=== PATIENT | female | born 1995 | race Caucasian/White ===

== ENCOUNTER 2023-04-06 15:49 | Emergency (ER) | payer OTHER ==
--- NOTE | 2023-04-06 16:23 | ED Physician Documentation ---
PD HPI NVD - Stated complaint Stated Complaint: VOMITING/SWEATING - Chief complaint Chief Complaint: Abd Pain - History obtained from History obtained from: Patient, Family () - History of Present Illness Timing - onset: Today (4am) Timing - duration: Hours Timing - details: Abrupt onset, Still present Associated symptoms: Abdominal pain, Other (diarrhea has now started nausea and vomiting every hour for the past 12 hours.) Contributing factors: Bad food (had a pot luck at work at the same as at home and he is not sick.) Improved by: Vomiting Similar symptoms before: No diagnosis Recently seen: Not recently seen - Additonal information Additional information: 28-year-old Naomy Lilly reports that she was feeling well when she went to bed last night and about 4 AM she woke up with a sweat and developed nausea and vomiting. Since she has been to the emergency department she has developed diarrhea as well. She states that it looks like the same thing that is she is vomiting. She went to a pot luck at work yesterday and does not remember specifically what she had to eat but she did have dinner with her and he is not sick. She remembers feeling somewhat under the weather last night when she went to bed but she did not necessarily feel ill. When she awoke at 4 AM with the sweats she felt ill. She has vomited once an hour for the past 12 hours.She does admit to cannabis use but not for the past 2 weeks. She did not get any relief by getting into a warm bath. She has had some issues with her stomach and nausea and pain previously. Review of Systems Constitutional: reports: Chills, Sweats. denies: Fever Ears: denies: Ear pain Nose: denies: Congestion Throat: denies: Sore throat Cardiac: denies: Chest pain / pressure, Palpitations Respiratory: denies: Dyspnea, Cough GI: reports: Abdominal Pain, Nausea, Vomiting, Diarrhea : denies: Dysuria, Frequency, Hesitancy PD PAST MEDICAL HISTORY - Present Medications Home Medications: Ambulatory Orders Medication Instructions Recorded Confirmed Ondansetron Odt [Zofran] 4 mg TL Q6H PRN #10 tablet 04/06/23 - Allergies Allergies/Adverse Reactions: Allergies Allergy/AdvReac Type Severity Reaction Status Date / Time No Known Drug Allergies Allergy Verified 04/06/23 15:58 PD ED PE NORMAL - Vitals Vital signs reviewed: Yes (Hypertensive mild) - General General: Alert and oriented X 3, No acute distress, Well developed/nourished - HEENT HEENT: Atraumatic, PERRL, EOMI - Neck Neck: Supple, no meningeal sign, No bony TTP - Cardiac Cardiac: RRR, No murmur - Respiratory Respiratory: No respiratory distress, Clear bilaterally - Abdomen Abdomen: Normal bowel sounds, Soft, Non distended, No organomegaly, Other (Mild generalized tenderness without guarding) - Back Back: No CVA TTP, No spinal TTP - Derm Derm: Normal color, Warm and dry, No rash - Extremities Extremities: No deformity, No edema - Neuro Neuro: Alert and oriented X 3, 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, No motor deficit, No sensory deficit, Normal speech Eye Opening: Spontaneous Motor: Obeys Commands Verbal: Oriented GCS Score: 15 - Psych Psych: Normal mood, Normal affect Results - Vitals Vitals: Vital Signs - 24 hr 04/06/23 04/06/23 04/06/23 15:54 15:58 17:58 Temperature 36.6 C 36.6 C 36.5 C Heart Rate 90 90 86 Respiratory 16 16 16 Rate Blood Pressure 131/90 H 131/90 H 128/88 H O2 Saturation 97 97 98 Oxygen O2 Source Room air - Labs Labs: Laboratory Tests 04/06/23 04/06/23 04/06/23 16:30 16:30 16:30 WBC 8.8 RBC 4.29 Hgb 14.2 Hct 39.8 MCV 92.8 MCH 33.1 H MCHC 35.7 RDW 12.4 Plt Count 358 MPV 8.7 Neut # (Auto) 6.9 H Lymph # (Auto) 1.4 L [place] # (Auto) 0.5 Eos # (Auto) 0.0 Baso # (Auto) 0.1 Absolute Nucleated RBC 0.00 Nucleated RBC % 0.0 Sodium 141 Potassium 3.7 Chloride 106 Carbon Dioxide 24 Anion Gap 11.0 BUN 17 Creatinine 0.7 Estimated GFR (MDRD) 101 Glucose 117 H Calcium 8.9 Total Bilirubin 0.9 AST 29 ALT 25 Alkaline Phosphatase 49 Total Protein 8.3 H Albumin 4.6 Globulin 3.7 Albumin/Globulin Ratio 1.2 Lipase 34 Urine Color YELLOW Urine Clarity CLEAR Urine pH 7.0 Ur Specific [place] 1.020 Urine Protein NEGATIVE Urine Glucose (UA) NEGATIVE Urine Ketones NEGATIVE Urine Occult Blood TRACE-INTA Urine Nitrite NEGATIVE Urine Bilirubin NEGATIVE Urine Urobilinogen 0.2 (NORMAL) Ur Leukocyte Esterase NEGATIVE Ur Microscopic Review NOT INDICATED Urine Culture Comments NOT INDICATED Urine HCG, Qual NEGATIVE PD Medical Decision Making - ED course Complexity details: reviewed results, re-evaluated patient, considered diffe rential, d/w patient ED course: 28-year-old female with acute nausea vomiting and diarrhea of 12 hours duration presents to the emergency department appearing dehydrated and still nauseated. We have administered Zofran and saline. She has improvement. Departure - Departure Disposition: Home, Self Care Clinical Impression: Gastroenteritis Condition: Stable Instructions: ED Gastroenteritis Vs Food Poison Follow-Up: Your, doctor [Other] Prescriptions: Ondansetron Odt [Zofran] 4 mg TL Q6H PRN #10 tablet PRN Reason: Nausea / Vomiting Comments: Naomy, today looks like you have acute food poisoning and the expectation with this is a rapid recovery to this. I have E scribed some Zofran for you to use to the [facility] in [place]. If you are unable to keep fluids down by tomorrow a return visit is indicated. Discharge Date/Time: 04/06/23 18:01
[2023-04-06] MEDS ORDERED: SODIUM CHLORIDE 0.9% 1,000 ML IV STA (16:25)
[2023-04-06] MEDS ORDERED: ONDANSETRON 4 MG/2 ML VIAL IVP STA (16:25)
[2023-04-06 16:41] LABS: BASOPHILS # (AUTO) 0.1 10^3/uL (0.0-0.1); BASOPHILS % (AUTO) 0.8 %; HCT - HEMATOCRIT 39.8 % (37.0-47.0); HGB - HEMOGLOBIN 14.2 g/dL (12.0-16.0); LYMPHOCYTES # (AUTO) 1.4 10^3/uL (1.5-3.5); LYMPHOCYTES % (AUTO) 15.8 %; MEAN CORPUSCULAR HEMOGLOBIN 33.1 pg (27.0-31.0); MEAN CORPUSCULAR HGB CONC 35.7 g/dL (32.0-36.0); MEAN CORPUSCULAR VOLUME 92.8 fL (81.0-99.0); MEAN PLATELET VOLUME 8.7 fL (7.9-10.8); MONOCYTES # (AUTO) 0.5 10^3/uL (0.0-1.0); MONOCYTES % (AUTO) 5.3 %; NEUTROPHILS # (AUTO) 6.9 10^3/uL (1.5-6.6); NEUTROPHILS % (AUTO) 77.6 %; PLT - PLATELET COUNT 358 10^3/uL (130-450); RED BLOOD COUNT 4.29 10^6/uL (4.20-5.40); RED CELL DISTRIBUTION WIDTH 12.4 % (12.0-15.0); WHITE BLOOD COUNT 8.8 x10^3/uL (4.8-10.8)
[2023-04-06 16:43] LABS: BILIRUBIN,URINE NEGATIVE (NEGATIVE); GLUCOSE, URINE (UA) NEGATIVE (NEGATIVE); KETONES,URINE (UA) NEGATIVE (NEGATIVE); LEUKOCYTE ESTERASE, URINE NEGATIVE (NEGATIVE); NITRITE,URINE NEGATIVE (NEGATIVE); OCCULT BLOOD,URINE TRACE-INTA (NEGATIVE); PROTEIN,URINE NEGATIVE (NEGATIVE); UROBILINOGEN,URINE 0.2 (NORMAL) E.U./dL (NORMAL)
[2023-04-06 16:48] LABS: CLARITY,URINE CLEAR (CLEAR)
[2023-04-06 16:49] LABS: HCG UR QUAL NEGATIVE
[2023-04-06 16:54] LABS: ALBUMIN 4.6 g/dL (3.2-5.5); ALBUMIN/GLOBULIN RATIO 1.2 (1.0-2.2); BILIRUBIN,TOTAL 0.9 mg/dL (0.2-1.0); CALCIUM 8.9 mg/dL (8.5-10.3); CREATININE 0.7 mg/dL (0.4-1.0); POTASSIUM 3.7 mmol/L (3.5-5.0); TOTAL PROTEIN 8.3 g/dL (6.7-8.2)
[2023-04-06 18:04] VITALS: BP 128/88
== END 2023-04-06 18:01 | disposition home or self-care (01) ==
LOC: ED 15:49
DX: K52.9 Noninfective gastroenteritis and colitis, unspecified (principal)
CPT/HCPCS: 36415; 80053; 81001; 81003; 81025; 83690; 85025; 87086; 96374; 99283